=== PATIENT | female | born 1980 ===

== ENCOUNTER 2017-01-28 10:14 | Day surgery (SDC) | payer BC, OTHER ==
[2017-01-25 14:07] VITALS: BMI 21.7
[2017-01-28] MEDS ORDERED: Propofol 10 mg/ml Inj (20 ML) ONE ×2 (11:22→13:25)
[2017-01-28] MEDS ORDERED: Midazolam 2 MG/2 ML VIAL ONE ×2 (11:23→13:25)
[2017-01-28] MEDS ORDERED: ePHEDrine 50 mg/ml Inj ONE (11:23)
[2017-01-28] MEDS ORDERED: Silver Nitrate Topical - Stick ONE (11:25)
[2017-01-28] MEDS ORDERED: Ferric Subsulfate Sol(60 mL) ONE (11:32)
[2017-01-28 11:40] LABS: BASO # 0.1 K/uL (0.0-0.2); BASO % 0.7 % (0.0-2.0); EOS % 0.2 % (0.0-4.0); HEMATOCRIT 36.9 % (34.0-47.0); LYMPH # 3.2 K/uL (1.0-4.3); LYMPH % 30.5 % (20.0-40.0); MEAN CELL VOLUME 89.5 fl (81.0-99.0); MEAN CORPUSCULAR HEMOGLOBIN 29.6 pg (27.0-31.0); MEAN PLATELET VOLUME 7.3 fl (7.2-11.7); MONO # 0.6 K/uL (0.0-0.8); MONO % 5.7 % (0.0-10.0); NEUT # 6.6 K/uL (1.8-7.0); NEUT % 62.9 % (50.0-75.0); NRBC % 0.1 % (0.0-0.0); RED CELL DISTRIBUTION WIDTH 14.4 % (11.5-14.5); WHITE BLOOD COUNT 10.5 K/uL (4.8-10.8)
[2017-01-28] MEDS ORDERED: Lactated Ringer's 1,000 ML IV SCH (14:21)
[2017-01-28] MEDS: HYDROmorphone 0.5 mg/0.5 ml ISec IVP PRN ×3 (14:55→15:20)
[2017-01-28 15:56] VITALS: RESP 18; O2SAT 99
[2017-01-28] MEDS ORDERED: Oxycodone/Acetaminophen 5/325 mg Tab PO PRN (16:05)
[2017-01-28 16:52] VITALS: BP 110/75; PULSE 76; TEMP 97.8
--- NOTE | 2017-02-06 10:29 | OP ---
PROCEDURE DATE: 01/28/2017 SURGEON: Virgilio Sousa MD PREOPERATIVE DIAGNOSIS: Missed with a history of habitual . POSTOPERATIVE DIAGNOSIS: Missed with a history of habitual . PROCEDURE PERFORMED: Suction D and C. ANESTHESIA: LMA. ESTIMATED BLOOD LOSS: Minimal. COMPLICATIONS: None. DESCRIPTION OF PROCEDURE: After adequate anesthesia was obtained, the patient was placed in the dors olithotomy position. She was prepped and draped, the surgeon gowned and gloved. At this point, an e xam under anesthesia was performed revealing an anteverted uterus about 7-8weeks in size. A prior ul trasound had been performed at the office confirming the missed . At this point, after empty ing the bladder, the anterior lip of the cervix was grasped. The cervix was gently dilated and a #8- [place] curved suction curette was inserted in the uterine cavity and abundant products of conception were obtained. A second pass was made given the abundance of the tissue and there was no evidence of bleeding at all after this. No need for a sharp curetting was required, especially because there wa s a concern about creating adhesions after the procedure. So at this point, the uterus was gently ma ssaged. There was no bleeding at all. The tenaculum was removed. The patient was woken up and take n to recovery room in excellent condition. Please note that preoperative antibiotics had been given and the patient's Rh was confirmed to be positive. Tissue pathology was sent for both genetic microa rray and maternity contamination. Virgilio Sousa MD cc: [id number] TT: 02/06/2017 10:28:46 tn
== END 2017-01-28 17:14 | disposition home or self-care (01) ==
LOC: H.OPSURG 10:14
PROVIDERS: ATTEND Obstetrics & Gynecology Reproductive Endocrinology
DX: O02.1 Missed abortion (principal); K57.90 Diverticulosis of intestine, part unspecified, without perforation or abscess without bleeding; K21.9 Gastro-esophageal reflux disease without esophagitis
CPT/HCPCS: 36415; 59820; 85025; 86850; 86900; 88300; 88305; J0690; J1170; J1885; J2001; J2250; J2405; J2704; J3010; J7030; J7120